=== PATIENT | female | born 2000 | race Caucasian/White ===

== ENCOUNTER → 2022-08-13 | Emergency (ER) | payer MEDICAID | END | disposition home or self-care (01) | LOC: ER 21:02 | DX: K92.0 Hematemesis (principal) ==

== ENCOUNTER 2023-04-04 02:43 | Inpatient (IN) | payer MEDICAID ==
[~2023-04-04] VITALS: Ht 164 cm; Wt 57.7 kg
[2023-04-04] VITALS (63 sets, daily range): BP systolic 90–117; BP diastolic 50–87
[2023-04-04] MEDS ORDERED: BUTORPHANOL INJ 2 MG/ML VIAL IV PRN (03:15)
[2023-04-04] MEDS ORDERED: MINERAL OIL 30 ML UDC TOP PRN (03:15)
[2023-04-04] MEDS ORDERED: LACTATED RINGERS 1,000 ML 500 ML IV PRN (03:15)
[2023-04-04 03:31] LABS: BASOPHILS % (AUTO) 0 % (0-10); EOSINOPHILS % (AUTO) 0 % (0-10); HEMATOCRIT 34 % (35-52); HEMOGLOBIN 10.6 g/dL (11.5-16.0); LYMPHOCYTES # (AUTO) 3.1 10^3/uL (1.0-4.0); LYMPHOCYTES % (AUTO) 30 % (12-44); MEAN CORPUSCULAR HEMOGLOBIN 27 pg (25-34); MEAN CORPUSCULAR HGB CONC 32 g/dL (32-36); MEAN CORPUSCULAR VOLUME 85 fL (80-99); MEAN PLATELET VOLUME 9.9 fL (9.0-12.2); MONOCYTES # (AUTO) 1.3 10^3/uL (0.0-1.0); MONOCYTES % (AUTO) 13 % (0-12); NEUTROPHILS # (AUTO) 5.9 10^3/uL (1.8-7.8); NEUTROPHILS % (AUTO) 57 % (42-75); PLATELET COUNT 258 10^3/uL (130-400); WHITE BLOOD COUNT 10.4 10^3/uL (4.3-11.0)
[2023-04-04] MEDS ORDERED: BUTORPHANOL INJ 2 MG/ML VIAL ONE (03:31)
[2023-04-04] MEDS: D5 LR 1,000 ML IV SOLN 1,000 ML IV SCH ×2 (04:16→10:31)
[2023-04-04] MEDS ORDERED: fentaNYL 2 mcg/ml BUPIVA 0.125 100 ML ONE (04:46)
[2023-04-04] MEDS ORDERED: LIDOCAINE PF 2% 5 ML VIAL ONE (05:50)
[2023-04-04] MEDS ORDERED: fentaNYL INJECTION 100 MCG/2 ML VIAL ONE (05:50)
[2023-04-04] MEDS ORDERED: CATHETER FLUSH 10 ML SYR IV SCH ×2 (06:00→22:00)
[2023-04-04] MEDS ORDERED: diphenhydrAMINE 25 MG TABLET PO PRN (07:45)
--- NOTE | 2023-04-04 07:52 | History & Physical-OB ---
OB - Chief Complaint & HPI Date/Time Date of Admission: Date of Admission: Apr 04, 2023 at 03:05 Date seen by a Provider: Apr 04, 2023 Time Seen by a Provider: 07:35 Chief Complaint/History OB-Reason for Admission/Chief: Onset of Labor Hx : 2 Hx Para: 1 Expected Date of Delivery: Apr 07, 2023 Gestational Age in Weeks: 39 Gestational Age in Days: 4 Admission Nurse Assessment Rev: Yes Allergies and Home Medications Allergies Coded Allergies: No Known Drug Allergies (Unverified , 04/04/23) Patient Home Medication List Home Medication List Reviewed: Yes OB - History Hx of Present Care: Yes Ultrasounds: Normal mid trimester US Obstetrical Complications: None Medical Complications: None Information Induced Hypertension: No Maternal Gestational Diabetes: No Hemorrhage: No Obstetrical History Hx : 2 Hx Para: 1 Hx # Term Pregnancies: 1 Number of Living Children: 1 Hx Termination: No Hx Multiple Gestation: No Hx Ectopic : No Hx Stillbirth: No Hx Complication: No Hx Induced Hypertens: No Hx Maternal Gestational Diabet: No Hx Hemorrhage: No Delivery History Hx Dystocia: No Hx Forceps Assisted Delivery: No Hx Vacuum Extraction Assisted: No Hx Placenta Abnormality: No Hx Distress: No Hx Large For Gestational Age I: No Hx Small for Gestational Age I: No Hx Section: No Hx Vaginal Delivery Post C-Sec: No Hx Blood Disorders: No Adverse Rxn to Tranfusion: No Patient Past Medical History no significant pmh Social History/Family History Alcohol Use: Denies Use Recreational Drug Use: No Smoking Cessation: Never smoker 2nd Hand Smoke Exposure: No Immunizations Influenza Vaccine Up-to-Date: No; Not Current OB - Admission Exam Physical Exam Vitals: Vital Signs 04/04/23 04/04/23 04/04/23 06:35 07:00 07:15 Temp 36.6 Pulse 77 Resp 18 B/P (MAP) 102/55 (71) Pulse Ox 98 O2 Delivery Room Air HEENT: NCAT Heart: Rhythm Normal Lungs: Clear, Equal Abdomen: Gravid Extremities: Normal Reflexes: Normal Cervical Dilatation: 4cm Effacement: 50% Station: -3 Membranes: Intact Heart Rate: 130's Accelerations: Accelerations Present Decelerations: No Decelerations Short Term Variability: Present Liquid Sugar Fortifier Variability: Average (6-25) Contractions on Admission: < 5 Minutes Apart Date/Time Contractions Began;: 04/03/23 at 2130 Frequency of Contractions: q3-5mins Duration: 1 min Intensity: Moderate Delarosa Scoring Tool (Modified) Dilation (cm): 3-4cm (2) Effacement (%): 31-51% (1) Descent/Station: -3 (0) Cervix Consistency: Medium(1) Cervix Position: Middle/Mid-Position (1) Add 1 point for: Each previous vaginal delivery (1) Delarosa Score: 6 Labs Laboratory Tests Test 04/04/23 03:15 Range/Units White Blood Count 10.4 4.3-11.0 10^3/uL Red Blood Count 3.97 3.80-5.11 10^6/uL Hemoglobin 10.6 L 11.5-16.0 g/dL Hematocrit 34 L 35-52 % Mean Corpuscular Volume 85 80-99 fL Mean Corpuscular Hemoglobin 27 25-34 pg Mean Corpuscular Hemoglobin Concent 32 32-36 g/dL Red Cell Distribution Width 19.9 H 10.0-14.5 % Platelet Count 258 130-400 10^3/uL Mean Platelet Volume 9.9 9.0-12.2 fL Immature Granulocyte % (Auto) 0 % Neutrophils (%) (Auto) 57 42-75 % Lymphocytes (%) (Auto) 30 12-44 % Monocytes (%) (Auto) 13 H 0-12 % Eosinophils (%) (Auto) 0 0-10 % Basophils (%) (Auto) 0 0-10 % Neutrophils # (Auto) 5.9 1.8-7.8 10^3/uL Lymphocytes # (Auto) 3.1 1.0-4.0 10^3/uL Monocytes # (Auto) 1.3 H 0.0-1.0 10^3/uL Eosinophils # (Auto) 0.0 0.0-0.3 10^3/uL Basophils # (Auto) 0.0 0.0-0.1 10^3/uL Immature Granulocyte # (Auto) 0.0 0.0-0.1 10^3/uL Syphilis Total Antibody Negative Negative OB - Assessment/Plan/Diagnosis Assessment Assessment: active labor Admission Dx Term labor Admission Status: Inpatient Order (span 2 midnights) Reason for Inpatient Admission: Labor and delivery, high risk for complications Plan Plan: Expectant Management SIXTO HARTMANN MD Apr 04, 2023 07:52
[2023-04-04] MEDS ORDERED: fentaNYL 2 mcg/ml BUPIVA 0.125 100 ML EPI SCH (08:00)
[2023-04-04] MEDS ORDERED: LACTATED RINGERS 1,000 ML 1,000 ML IV ONE (08:00)
[2023-04-04] MEDS ORDERED: NALOXONE 0.4 MG/ML 1 ML VIAL IV PRN ×2 (08:00→15:30)
[2023-04-04] MEDS ORDERED: CATHETER FLUSH 10 ML SYR IV PRN (08:00)
[2023-04-04] MEDS ORDERED: ONDANSETRON INJECTION 4 MG/2 ML (SDV) IVP NR (12:00)
--- NOTE | 2023-04-04 12:28 | Labor Progress Note ---
Labor Progress Note Labor Progress Note Date Seen by Provider: Apr 04, 2023 Time Seen by Provider: 12:20 Subjective: Pt denies complaints. Some nausea with increasing epidural, but comfortably numb. Bloody show. Objective: Cervical exam: /-2 Consistency: soft Position: mid Presentation: vertex heart tones: 145 beats per minute, moderate variability, reactive Tocometer: 3 ctx/10 minutes Assessment/Plan: Savanah Juarez is a (22 /Para 2 / 1,Gestational Age (wks)39 here for active labor. CEFM/TOCO AROM at 1230 Continue expectant management Anesthesia: epidural Anticipate vaginal delivery. Vitals - Labs Vital Signs - I&O Vital Signs Date Time Temp Pulse Resp B/P (MAP) Pulse Ox O2 Delivery O2 Flow Rate FiO2 04/04/23 10:15 92 104/63 (77) Room Air 04/04/23 10:00 82 97/60 (72) Room Air 04/04/23 09:45 89 92/51 (65) Room Air 04/04/23 09:30 83 96/55 (69) Room Air 04/04/23 09:15 78 97/54 (68) Room Air 04/04/23 09:00 81 97/56 (70) Room Air 04/04/23 08:45 80 95/52 (66) Room Air 04/04/23 08:30 115 109/76 (87) Room Air 04/04/23 08:15 88 116/78 (91) Room Air 04/04/23 07:45 99 107/66 (80) 100 Room Air 04/04/23 07:30 77 99/62 (74) 93 Room Air 04/04/23 07:15 77 102/55 (71) 98 Room Air 04/04/23 07:00 94 18 92/57 (69) 97 Room Air 04/04/23 06:50 85 18 100/55 (70) 97 Room Air 04/04/23 06:45 90 18 102/56 (71) 97 Room Air 04/04/23 06:40 85 18 98/55 (69) 99 Room Air 04/04/23 06:35 36.6 101 18 93/57 (69) 99 Room Air 04/04/23 06:30 99 18 90/52 (65) 99 Room Air 04/04/23 06:27 109 18 98/55 (69) 97 Room Air 04/04/23 06:25 96 18 110/57 (74) 97 Room Air 04/04/23 06:23 109 18 97/58 (71) 99 Room Air 04/04/23 06:21 116 18 111/59 (76) 99 Room Air 04/04/23 06:18 104 18 110/60 (77) 99 Room Air 04/04/23 06:14 103 18 99/61 (74) 98 Room Air 04/04/23 06:12 115 18 101/63 (76) 98 Room Air 04/04/23 06:10 121 18 104/67 (79) 100 Room Air 04/04/23 06:08 111 18 109/71 (84) 100 Room Air 04/04/23 06:07 95 18 108/74 (85) 100 Room Air 04/04/23 06:04 98 18 110/71 (84) 100 Room Air 04/04/23 06:01 98 18 107/87 (94) 100 Room Air 04/04/23 05:57 90 18 106/76 (86) 100 Room Air 04/04/23 05:54 92 18 111/66 (81) 96 Room Air 04/04/23 05:26 84 18 104/61 (75) Room Air 04/04/23 04:57 85 18 109/71 (84) Room Air 04/04/23 04:10 68 18 110/60 (77) Room Air 04/04/23 03:53 93 18 106/69 (81) Room Air 04/04/23 03:38 93 18 116/77 (90) Room Air 04/04/23 03:08 90 18 103/60 (74) 98 Room Air 04/04/23 02:53 36.3 100 18 97/59 (72) 96 Room Air 04/04/23 02:53 36.3 100 18 96 Room Air Labs Laboratory Tests 04/04/23 03:15: White Blood Count 10.4, Red Blood Count 3.97, Hemoglobin 10.6L, Hematocrit 34L, Mean Corpuscular Volume 85, Mean Corpuscular Hemoglobin 27, Mean Corpuscular Hemoglobin Concent 32, Red Cell Distribution Width 19.9H, Platelet Count 258, Mean Platelet Volume 9.9, Immature Granulocyte % (Auto) 0, Neutrophils (%) (Auto) 57, Lymphocytes (%) (Auto) 30, Monocytes (%) (Auto) 13H, Eosinophils (%) (Auto) 0, Basophils (%) (Auto) 0, Neutrophils # (Auto) 5.9, Lymphocytes # (Auto) 3.1, Monocytes # (Auto) 1.3H, Eosinophils # (Auto) 0.0, Basophils # (Auto) 0.0, Immature Granulocyte # (Auto) 0.0, Syphilis Total Antibody Negative SIXTO HARTMANN MD Apr 04, 2023 12:28
[2023-04-04] MEDS ORDERED: LIDOCAINE 2% w/EPI 1:200,000 20 ML VIAL ONE (14:23)
[2023-04-04] MEDS ORDERED: OXYTOCIN DRIP PRE-MIX 500 ML IV ONE ×2 (14:51→15:35)
[2023-04-04] MEDS: OXYTOCIN DRIP PRE-MIX 500 ML IV SCH ×2 (14:54→15:35)
--- NOTE | 2023-04-04 15:22 | OB Labor & Delivery Record ---
L&D History Date of Service Date of Service: Apr 04, 2023 History Expected Date of Delivery: Apr 07, 2023 Gestational Age in Weeks: 39 Hx : 2 Hx Para: 1 Complications Events: Routine care Operative Indications (Cesarea: N/A-Vaginal Delivery Intrapartal Events: None L&D Stage1 Stage One Onset of Labor - Date: Apr 04, 2023 Onset of Labor - Time: 03:00 Monitors and Tracing Monitor Mode: External Heart Rate: 125 Monitor Accelerations: Uniform Monitor Decelerations: None Station: -3 Skilled Nursing Variability: Moderate (11-25) Short Term Variability: Present Presentation: Vertex Vital Signs VS - Last 72 Hours, by Label 04/04/23 04/04/23 04/04/23 04/04/23 02:53 02:53 03:08 03:38 Temp 36.3 36.3 Pulse 100 100 90 93 Resp 18 18 18 18 B/P (MAP) 97/59 (72) 103/60 (74) 116/77 (90) Pulse Ox 96 96 98 O2 Delivery Room Air Room Air Room Air Room Air 04/04/23 04/04/23 04/04/23 04/04/23 03:53 04:10 04:57 05:26 Pulse 93 68 85 84 Resp 18 18 18 18 B/P (MAP) 106/69 (81) 110/60 (77) 109/71 (84) 104/61 (75) O2 Delivery Room Air Room Air Room Air Room Air 04/04/23 04/04/23 04/04/23 04/04/23 05:54 05:57 06:01 06:04 Pulse 92 90 98 98 Resp 18 18 18 18 B/P (MAP) 111/66 (81) 106/76 (86) 107/87 (94) 110/71 (84) Pulse Ox 96 100 100 100 O2 Delivery Room Air Room Air Room Air Room Air 04/04/23 04/04/23 04/04/23 04/04/23 06:07 06:08 06:10 06:12 Pulse 95 111 121 115 Resp 18 18 18 18 B/P (MAP) 108/74 (85) 109/71 (84) 104/67 (79) 101/63 (76) Pulse Ox 100 100 100 98 O2 Delivery Room Air Room Air Room Air Room Air 04/04/23 04/04/23 04/04/23 04/04/23 06:14 06:18 06:21 06:23 Pulse 103 104 116 109 Resp 18 18 18 18 B/P (MAP) 99/61 (74) 110/60 (77) 111/59 (76) 97/58 (71) Pulse Ox 98 99 99 99 O2 Delivery Room Air Room Air Room Air Room Air 04/04/23 04/04/23 04/04/23 04/04/23 06:25 06:27 06:30 06:35 Temp 36.6 Pulse 96 109 99 101 Resp 18 18 18 18 B/P (MAP) 110/57 (74) 98/55 (69) 90/52 (65) 93/57 (69) Pulse Ox 97 97 99 99 O2 Delivery Room Air Room Air Room Air Room Air 04/04/23 04/04/23 04/04/23 04/04/23 06:40 06:45 06:50 07:00 Pulse 85 90 85 94 Resp 18 18 18 18 B/P (MAP) 98/55 (69) 102/56 (71) 100/55 (70) 92/57 (69) Pulse Ox 99 97 97 97 O2 Delivery Room Air Room Air Room Air Room Air 04/04/23 04/04/23 04/04/23 04/04/23 07:15 07:30 07:45 08:15 Pulse 77 77 99 88 B/P (MAP) 102/55 (71) 99/62 (74) 107/66 (80) 116/78 (91) Pulse Ox 98 93 100 O2 Delivery Room Air Room Air Room Air Room Air 04/04/23 04/04/23 04/04/23 04/04/23 08:30 08:45 09:00 09:15 Pulse 115 80 81 78 B/P (MAP) 109/76 (87) 95/52 (66) 97/56 (70) 97/54 (68) O2 Delivery Room Air Room Air Room Air Room Air 04/04/23 04/04/23 04/04/23 04/04/23 09:30 09:45 10:00 10:15 Pulse 83 89 82 92 B/P (MAP) 96/55 (69) 92/51 (65) 97/60 (72) 104/63 (77) O2 Delivery Room Air Room Air Room Air Room Air 04/04/23 04/04/23 04/04/23 04/04/23 10:30 10:45 11:00 11:15 Pulse 85 103 93 101 B/P (MAP) 101/63 (76) 101/67 (78) 99/54 (69) 112/69 (83) O2 Delivery Room Air Room Air Room Air Room Air 04/04/23 04/04/23 04/04/23 04/04/23 11:30 11:45 11:45 12:00 Pulse 74 103 90 78 B/P (MAP) 95/53 (67) 101/67 (78) 90/52 (65) 93/50 (64) O2 Delivery Room Air Room Air Room Air Room Air 04/04/23 04/04/23 04/04/23 04/04/23 12:15 12:30 12:45 13:00 Pulse 88 81 79 78 B/P (MAP) 92/54 (67) 108/63 (78) 100/63 (75) 108/59 (75) O2 Delivery Room Air Room Air Room Air Room Air 04/04/23 04/04/23 13:15 13:30 Pulse 76 81 Resp 18 B/P (MAP) 98/62 (74) 101/57 (72) O2 Delivery Room Air Room Air Signs of Distress by FHT Signs of Distress NONE Rupture of Membranes Spontaneous Ruture of Membrane: No (AROM) Amniotic Membrane Rupture Time: 1222 Amniotic Membrane Fluid Desc.: Clear Vaginal Bleeding Description: Normal Show Induction/Anesthesia Epidural Cath Placement - Time: 0600 L&D Stage2 Stage Two Stage II Date: Apr 04, 2023 Stage II Time: 14:16 Monitors and Tracing Monitor Mode: External Heart Rate: 125 Monitor Accelerations: Uniform Monitor Decelerations: None Metallurgical Engineering Technician Variability: Moderate (11-25) Short Term Variability: Present Position: Right Occiput Anterior Presentation: Vertex Signs of Distress by FHT Signs of Distress NONE Cord Descript/Complications Cord Vessel Description: 3 Vessels Delivery Type Delivery Method: Spontaneous Vaginal Anterior Shoulder: Left Episiotomy/Perineal Laceration Laceraction(s)/Extensions: Yes (Left periurethral laceration, small) Episiotomy Description: Periurethral Extnsion/lac (not repaired), 1st degree Location Modifier: Left Condition of Infant Delivery Delivery Date & Time: 04/04/23 at 1450 1 minute Comment: 8 5 minute Comment: 9 Condition of Condition of : Living Exam: No Observed Abnormalities Resuscitation Resuscitation: N/A - Spontaneous Resp L&D Stage3 Stage Three Stage III Date: Apr 04, 2023 Stage III Time: 14:56 Pictocin Pitocin Administration Comment: Bolus given after delivery of infant Placenta Delivery Placenta Delivery: Spontaneous Delivery Summary Summary Total Labor Time 11hr Estimated blood loss (mL): 50cc Attending at delivery: Dr. Constantino Condition of Delivery Examined: Cervix Examined Post Hemorrhage: No Condition of Mother Stable, to recovery Condition of Infant (s) Stable, to cares SIXTO CONSTANTINO MD Apr 04, 2023 15:21
[2023-04-04] MEDS ORDERED: DIBUCAINE 1% OINTMENT 28 GM TUBE TOP PRN (15:30)
[2023-04-04] MEDS ORDERED: Tetanus/Diphtheria/Pertussis (Acell) ADULT Vaccine 0.5 ML IM ONE (15:30)
[2023-04-04] MEDS ORDERED: BENZOCAINE/MENTHOL (DERMOPLAST) 56 ML CAN TP PRN (15:30)
[2023-04-04] MEDS ORDERED: MEASLES, MUMPS, RUBELLA VACCINE (MMR) SQ ONE (15:30)
[2023-04-04] MEDS ORDERED: WITCH HAZEL(TUCKS) 40 EA JAR TOP PRN (15:30)
[2023-04-04] MEDS: IBUPROFEN 600 MG TABLET PO SCH ×2 (17:19→23:24)
[2023-04-04] MEDS: ACETAMINOPHEN 500 MG TABLET PO SCH ×2 (17:19→23:23)
[2023-04-04] MEDS: DOCUSATE SODIUM 100 MG CAPSULE PO SCH (21:07)
[2023-04-05 00:50] VITALS: BP 99/66
[2023-04-05] MEDS ORDERED: diphenhydrAMINE 25 MG TABLET PO ONE ×2 (01:36→01:45)
[2023-04-05 05:25] VITALS: BP 95/53
[2023-04-05 06:37] LABS: BASOPHILS % (AUTO) 0 % (0-10); EOSINOPHILS # (AUTO) 0.1 10^3/uL (0.0-0.3); EOSINOPHILS % (AUTO) 1 % (0-10); HEMATOCRIT 29 % (35-52); HEMOGLOBIN 9.3 g/dL (11.5-16.0); LYMPHOCYTES # (AUTO) 3.7 10^3/uL (1.0-4.0); LYMPHOCYTES % (AUTO) 26 % (12-44); MEAN CORPUSCULAR HEMOGLOBIN 27 pg (25-34); MEAN CORPUSCULAR HGB CONC 32 g/dL (32-36); MEAN CORPUSCULAR VOLUME 84 fL (80-99); MEAN PLATELET VOLUME 10.6 fL (9.0-12.2); MONOCYTES # (AUTO) 1.5 10^3/uL (0.0-1.0); MONOCYTES % (AUTO) 11 % (0-12); NEUTROPHILS # (AUTO) 8.8 10^3/uL (1.8-7.8); NEUTROPHILS % (AUTO) 62 % (42-75); PLATELET COUNT 232 10^3/uL (130-400); WHITE BLOOD COUNT 14.2 10^3/uL (4.3-11.0)
[2023-04-05] MEDS ORDERED: PRENATAL VITAMIN TABLET PO SCH (07:00)
[2023-04-05] MEDS ORDERED: FERROUS SULFATE 325 MG (IRON) TABLET PO SCH (09:00)
[2023-04-05] MEDS: IBUPROFEN 600 MG TABLET PO SCH (09:24)
[2023-04-05] MEDS: ACETAMINOPHEN 500 MG TABLET PO SCH (09:25)
[2023-04-05] MEDS: DOCUSATE SODIUM 100 MG CAPSULE PO SCH (09:25)
[2023-04-05 09:40] VITALS: BP 108/66
--- NOTE | 2023-04-05 09:52 | Discharge Summary ---
Diagnosis/Chief Complaint Date of Admission Apr 04, 2023 at 03:05 Date of Discharge 04/05/23 Admission Diagnosis Admission Diagnosis Third Trimester 39 week gestation Discharge Diagnosis Uncomplicated @ term Discharge Summary-Simple/Stand Procedures Epidural placement Uncomplicated Anemia of acute blood loss Discharge Physical Examination Allergies: Coded Allergies: No Known Drug Allergies (Unverified , 04/04/23) Vitals & I&Os Vital Sign - Last 12Hours Date Time Temp Pulse Resp B/P (MAP) Pulse Ox O2 Delivery O2 Flow Rate FiO2 04/05/23 09:40 36.9 81 18 108/66 (80) 99 Room Air General Appearance: Alert, Oriented X3, No Acute Distress Respiratory: Clear to Auscultation Cardiovascular: Regular Rate, No Murmurs Abdominal: Normal Bowel Sounds, Soft Extremities: No Edema, No Tenderness/Swelling Neuro: Normal Speech Psych/Mental Status: Mental Status NL, Mood NL Hospital Course See final discharge diagnosis. Discussion & Recommendations 22 yo G2 now P2 Delivered term male infant via Discharge Condition at discharge stable Instructions to patient/family Please see electronic discharge instructions given to patient. Discharge Medications Reviewed and agree with Discharge Medication list on patient's Discharge Instruction sheet VIKAS COBURN MD Apr 05, 2023 09:52
[2023-04-05] MEDS ORDERED: DOCU100C37 PO (09:54)
[2023-04-05] MEDS ORDERED: PNV1TABL67 PO (09:54)
[2023-04-05] MEDS ORDERED: IBUP-844 PO (09:54)
[2023-04-05] MEDS ORDERED: FERR325T24 PO (09:54)
--- NOTE | 2023-04-05 09:54 | Discharge Summary ---
Discharge Inst-Women's Serv Depart Medications New, Converted or Re-Newed RX: Transmitted to Pharmacy New Medications: Docusate Sodium (Docusate Sodium) 100 Mg Capsule 100 MG PO BID, #14 CAP Ferrous Sulfate (Ferosul) 325 Mg (65 Mg Iron) Tablet 325 MG PO DAILY, #30 TAB Ibuprofen (Ibu) 600 Mg Tablet 600 MG PO Q6H, #60 TAB Pnv with Ca,No.72/Iron/FA (Pnv Plus Multivit Tab) 27 Mg Iron-1 Mg Tablet 1 EA PO DAILY@0700, #30 TAB Follow Up/Instructions Goal/Follow Up: [address] Constantino Activity Activity: Activity as Tolerated Driving Instructions: You May Drive NO SMOKING: NO SMOKING Nothing Inside Vagina: No Douching Diet Discharge Diet: No Restrictions VIKAS COBURN MD Apr 05, 2023 09:54
[2023-04-05 12:00] VITALS: BP 108/67
[2023-04-05 16:00] VITALS: BP 110/78
--- NOTE | 2023-04-07 12:16 | Anesthesia-Regional Post-Op ---
Regional Patient Condition Mental Status: Alert, Oriented x3 Circulation: Same as Pre-Op Headache: Absent Sensation: Full Recovery Motor Block: Absent Post Op Complications Complications None Follow Up Care/Instructions Patient Instructions None needed. Anesthesia/Patient Condition Patient was doing well prior to her discharge to home. She had no complaints per nursing staff and stable vital signs, no apparent adverse anesthesia problems. No complications reported per nursing. ANGEL RICHARD DO Apr 07, 2023 12:16
== END 2023-04-05 18:16 | disposition home or self-care (01) | DRG 807 ==
LOC: WSo 02:43 → LDRP 02:44 → WSo 03:04 → LDRP 03:05
PROVIDERS: ADMIT Family Medicine; ATTEND Family Medicine
PROC: 10907ZC Drainage of Amniotic Fluid, Therapeutic from Products of Conception, Via Natural or Artificial Opening (ICD-10-PCS; principal; 2023-04-04)
PROC: 10E0XZZ Delivery of Products of Conception, External Approach (ICD-10-PCS; 2023-04-04)
DX: O70.0 First degree perineal laceration during delivery (principal); Z37.0 Single live birth; Z3A.39 39 weeks gestation of pregnancy
CPT/HCPCS: 36415; 85025; 86780; 86850; 86900; 86901; 99212